=== PATIENT | female | born 1980 | race Caucasian/White ===

== ENCOUNTER 2019-02-06 05:12 | Emergency (ER) | payer MEDICAID ==
[~2019-02-06] VITALS: Ht 180.3 cm; Wt 150.0 kg
[2019-02-06] MEDS ORDERED: normal saline 1000ML IV soln IV ONE (05:35)
[2019-02-06] MEDS ORDERED: clindamycin phosphate inj 600 MG in normal saline 50ml IV soln 50 ML IV ONE (05:40)
[2019-02-06] MEDS ORDERED: LORazepam 2 mg/ml vial IV ONE (05:40)
[2019-02-06] MEDS ORDERED: clindamycin 600mg/D5W 50ml 50 ML IV ONE (05:50)
[2019-02-06] MEDS ORDERED: ketorolac tromethamine 15mg/ml inj. IV ONE (06:10)
--- NOTE | 2019-02-06 06:39 | NUR ---
ASSUME CARE OF PT. PT SLEEPING/SNORING. NO S/S DISTRESS OR PAIN AT THIS TIME.
--- NOTE | 2019-02-06 06:40 | NUR ---
USING [facility] [employer] MONITOR TO GET BP READING. MONITOR IN ROOM NOT REGISTERING.
[2019-02-06 06:42] LABS: BASOPHILS # (AUTO) 0.1 X10'3 (0-0.2); BASOPHILS % (AUTO) 0.7 % (0-1); EOSINOPHILS # (AUTO) 0.2 X10'3 (0-0.9); EOSINOPHILS % (AUTO) 1.8 % (0-6); HEMATOCRIT 39.7 % (35.0-45.0); HEMOGLOBIN 13.9 g/dl (12.0-16.0); LYMPHOCYTES # (AUTO) 1.8 X10'3 (1.1-4.8); LYMPHOCYTES % (AUTO) 17.7 % (21-51); MEAN CORPUSCULAR HGB CONC 35.1 g/dL (33.0-36.5); MEAN CORPUSCULAR VOLUME 91.4 FL (78-98); MEAN PLATELET VOLUME 7.9 FL (7.4-10.4); MONOCYTES # (AUTO) 0.8 X10'3 (0-0.9); MONOCYTES % (AUTO) 7.8 % (2-12); NEUTROPHILS # (AUTO) 7.2 X10'3 (1.8-7.7); PLATELET COUNT 279 X10'3 (140-440); RED BLOOD COUNT 4.34 X10'6 (4.20-5.60); RED CELL DISTRIBUTION WIDTH 14.7 % (11.5-14.5)
[2019-02-06 06:56] LABS: PARTIAL THROMBOPLASTIN TIME 28 SECONDS (22-32)
--- NOTE | 2019-02-06 06:59 | NUR ---
FRIEND AT BEDSIDE WHO BROUGHT HER IN TO THE ER.
[2019-02-06 07:02] LABS: ALANINE AMINOTRANSFERASE 16 U/L (12-78); ALBUMIN 2.7 G/DL (3.4-5.0); ALBUMIN/GLOBULIN RATIO 0.5 (1.1-1.5); ALKALINE PHOSPHATASE 55 IU/L (46-116); ANION GAP 9 (8-16); ASPARTATE AMINO TRANSFERASE 11 U/L (10-37); BILIRUBIN,TOTAL 0.5 MG/DL (0.1-1.0); BLOOD UREA NITROGEN 6 MG/DL (7-18); BUN/CREATININE RATIO 6.1 (6.6-38.0); CALCIUM 8.5 MG/DL (8.5-10.1); CHLORIDE 100 MMOL/L (99-107); CREATININE 0.99 MG/DL (0.40-0.90); GLUCOSE 155 MG/DL (70-104); MAGNESIUM 1.7 MG/DL (1.5-2.4); POTASSIUM 3.3 MMOL/L (3.5-5.1); SODIUM 132 MMOL/L (135-145); TOTAL CARBON DIOXIDE 22.7 MMOL/L (24-32); TOTAL PROTEIN 8.7 G/DL (6.4-8.2); eGFR 62 ML/MIN
--- NOTE | 2019-02-06 07:03 | NUR ---
LORELEI IS PT'S RIDE,
--- NOTE | 2019-02-06 08:20 | NUR ---
PT CONTINUES TO SLEEP, NO S/S DISTRESS OR PAIN.
[2019-02-06] MEDS ORDERED: CEPH-572 PO (08:42)
[2019-02-06] MEDS ORDERED: SULF1TAB49 PO (08:42)
--- NOTE | 2019-02-06 08:55 | NUR ---
PT BEING DISCHARGED. WAKE PT. INSTRUCT PT TO CALL FOR RIDE HOME. PT CALLING NOW WITH HER CELL PHONE.
--- NOTE | 2019-02-06 09:10 | NUR ---
DR DORADO INFORMED THAT LACTIC ACID WAS NOT DRAWN AT 0600. INFORMED THAT PATIENTS RIGHT LEG IS RED, HOT, SWOLLEN FROM HER FOOT TO HER INNER UPPER THIGH: MD ALREADY AWARE. DOPPLER PULSE TO RIGHT FOOT:DP AND TB.
--- NOTE | 2019-02-06 09:17 | NUR ---
PER LAB, NO LACTIC ACID DRAWN
--- NOTE | 2019-02-06 09:20 | NUR ---
CALLED KATHERINE ZUNIGA [phone]. HE HAS POSSESION OF PATIENT'S CAR
[2019-02-06 09:41] VITALS: BP 150/88
== END 2019-02-06 09:38 | disposition home or self-care (01) ==
LOC: ER 05:13
DX: L03.115 Cellulitis of right lower limb (principal); Z88.6 Allergy status to analgesic agent; Z88.5 Allergy status to narcotic agent; Z88.8 Allergy status to other drugs, medicaments and biological substances; Z79.2 Long term (current) use of antibiotics
CPT/HCPCS: 36415; 71045; 80053; 83735; 84145; 85025; 85610; 85730; 87040; 93005; 96365; 96366; 96375; 99284; J1885; J2060; J7030; J3490

== ENCOUNTER 2019-02-11 10:40 | Emergency (ER) | payer MEDICAID ==
[~2019-02-11] VITALS: Ht 180.3 cm; Wt 159.1 kg
[~2019-02-11 10:40] MED LIST: CEPH-572 PO; SULF1TAB49 PO
[2019-02-11] MEDS ORDERED: ondansetron/PF 4mg/2ml inj IV ONE (12:15)
[2019-02-11] MEDS ORDERED: CefTRIAXone 2gm/D5W 50ml 50 ML IV ONE (12:15)
[2019-02-11 12:58] LABS: BASOPHILS # (AUTO) 0.1 X10'3 (0-0.2); BASOPHILS % (AUTO) 0.7 % (0-1); EOSINOPHILS # (AUTO) 0.5 X10'3 (0-0.9); EOSINOPHILS % (AUTO) 6.6 % (0-6); HEMATOCRIT 40.4 % (35.0-45.0); HEMOGLOBIN 13.8 g/dl (12.0-16.0); LYMPHOCYTES # (AUTO) 1.9 X10'3 (1.1-4.8); LYMPHOCYTES % (AUTO) 24.4 % (21-51); MEAN CORPUSCULAR HEMOGLOBIN 31.5 PG (27.0-31.0); MEAN CORPUSCULAR HGB CONC 34.3 g/dL (33.0-36.5); MEAN PLATELET VOLUME 8.2 FL (7.4-10.4); MONOCYTES # (AUTO) 0.5 X10'3 (0-0.9); MONOCYTES % (AUTO) 6.8 % (2-12); NEUTROPHILS # (AUTO) 4.8 X10'3 (1.8-7.7); NEUTROPHILS % (AUTO) 61.5 % (42-75); PLATELET COUNT 286 X10'3 (140-440); RED BLOOD COUNT 4.39 X10'6 (4.20-5.60); RED CELL DISTRIBUTION WIDTH 14.7 % (11.5-14.5); WHITE BLOOD COUNT 7.8 X10'3 (4.5-11.0)
[2019-02-11] MEDS: morphine 4 MG/ML inj SYRINge IV PRN ×2 (13:00→14:46)
--- NOTE | 2019-02-11 13:56 | NUR ---
ULTRASOUND OF RIGHT LEG COMPLETE LABS BEING REDRAWN AND WILL WALK PATIENT TO THE BATHROOM FOR UA
--- NOTE | 2019-02-11 14:05 | NUR ---
PATIENT PROVIDED [facility] ON [facility] PROVIDED PATIENT'S MENTAL HEALTH PROVIDER LEFT TOWN THIS PAST SUMMER. PATIENT STATES THAT SHE DID SEE A PROVIDER AT [facility], BUT DID NOT LIKE HIM. SO. PATIENT HAS BEEN OFF HER BIPOLAR, ANXIETY, DEPRESSION, PTSD MEDICATIONS
--- NOTE | 2019-02-11 14:15 | NUR ---
ASSISTED PATIENT IN BATHROOM WITH BATH WIPES IN PREPARATION FOR HER URINE COLLECTION. EDUCATED PATIENT ON PERICARE IN BATHROOM: PATIENT WAS WIPING BACK TO FRONT AND THE CLOTHES WERE BROWN. PATIENT STATED THAT SHE COULD NOT WIPE FRONT TO BACK. I WIPED PATIENT FRONT TO BACK USING THE WHOLE PACK OF WIPES TO OBTAIN CLEAN CLOTHES.
--- NOTE | 2019-02-11 14:20 | NUR ---
patient ambulated with slight left leg limp, otherwise wnl ambulated to bathroom to give urine. Patient voided 400 ml despite saying that she could not void.
[2019-02-11] MEDS ORDERED: HYDROcodone/acetaminophen 10/325mg tab PO ONE (14:25)
[2019-02-11 14:28] LABS: URINE HCG NEGATIVE (NEG)
--- NOTE | 2019-02-11 14:43 | NUR ---
PATIENT RAISING HER VOICE AND GETTING ANGRY WHEN i ASKED HER IF SHE WAS TAKING ANY MEDCIATIONS AT HOME
--- NOTE | 2019-02-11 14:48 | NUR ---
PATIENT STATES THAT SHE IS NOT ALLERGIC TO [facility]
[2019-02-11 14:50] LABS: ALANINE AMINOTRANSFERASE 20 U/L (12-78); ALBUMIN 2.7 G/DL (3.4-5.0); ALBUMIN/GLOBULIN RATIO 0.5 (1.1-1.5); ALKALINE PHOSPHATASE 63 IU/L (46-116); ANION GAP 6 (8-16); ASPARTATE AMINO TRANSFERASE 12 U/L (10-37); BILIRUBIN,TOTAL 0.2 MG/DL (0.1-1.0); BLOOD UREA NITROGEN 4 MG/DL (7-18); BUN/CREATININE RATIO 3.7 (6.6-38.0); CALCIUM 8.3 MG/DL (8.5-10.1); CHLORIDE 104 MMOL/L (99-107); CREATININE 1.08 MG/DL (0.40-0.90); GLUCOSE 96 MG/DL (70-104); SODIUM 136 MMOL/L (135-145); TOTAL CARBON DIOXIDE 25.6 MMOL/L (24-32); TOTAL PROTEIN 8.6 G/DL (6.4-8.2); eGFR 56 ML/MIN
--- NOTE | 2019-02-11 14:54 | NUR ---
PATIENT AGAIN CRYING AND APPEARING HYSTERICAL WHEN ASKED WHO HER PRIMARY CARE DR IS AND PATIENT STATED THAT AGAIN SHE DID NOT LIKE HER NEW PROVIDER, SO HAD NOT SEEN A DR IN MONTHS. DISCUSSED POTENTIAL VENOUS STASIS AND POTENTIAL CELLUTIS WITH PATIENT IN SIMPLE TERMS, PATIENT VERBALIZED SIMPLE UNDERSTANDING AND THEN STARTED CRYING. DISCUSSED PATIENT PRIVACY IN REGARDS TO MEDICAL RECORDS WITH PATIENT AND PATIENTS [facility] WORKER. PATIENT CHOOSES TO COME TO [facility] FOR HER CARE BECAUSE "THEY JUST TELL ME TO GO [facility] AND EVERYTHING IS FINE IN [place] AT [facility].
[2019-02-11] MEDS ORDERED: cephalexin 250mg capsule PO ONE (15:10)
[2019-02-11] MEDS ORDERED: CEPH500C5 PO (15:12)
[2019-02-11] MEDS ORDERED: HYDR-4353 PO (15:17)
[2019-02-11 15:37] VITALS: BP 153/110
== END 2019-02-11 15:34 | disposition home or self-care (01) ==
LOC: ER 10:41
DX: I87.8 Other specified disorders of veins (principal); L03.115 Cellulitis of right lower limb; L40.9 Psoriasis, unspecified; I10 Essential (primary) hypertension; M19.90 Unspecified osteoarthritis, unspecified site; F17.200 Nicotine dependence, unspecified, uncomplicated; F12.90 Cannabis use, unspecified, uncomplicated; Z90.49 Acquired absence of other specified parts of digestive tract; Z98.890 Other specified postprocedural states; Z88.5 Allergy status to narcotic agent; Z88.8 Allergy status to other drugs, medicaments and biological substances; Z79.2 Long term (current) use of antibiotics
CPT/HCPCS: 36415; 80053; 81025; 84145; 85025; 93971; 96365; 96375; 96376; 99284; J0696; J2270; J2405

== ENCOUNTER 2019-10-28 11:18 | Emergency (ER) | payer MEDICAID ==
[~2019-10-28] VITALS: Ht 180.3 cm; Wt 159.1 kg
[~2019-10-28 11:18] MED LIST changes: -CEPH-572 PO; +CEPH500C5 PO; -SULF1TAB49 PO
--- NOTE | 2019-10-28 12:36 | NUR ---
[facility]
[2019-10-28] MEDS ORDERED: LORazepam 1 MG tablet PO ONE (12:45)
[2019-10-28] MEDS ORDERED: amLODIPine 5mg tablet PO ONE (12:45)
--- NOTE | 2019-10-28 13:30 | NUR ---
[facility] WORKING ON GETTING PT INTO OUTPATIENT APTS TO BEGIN BACK ON HER REGULAR MEDS
--- NOTE | 2019-10-28 13:31 | NUR ---
CALLED [facility] FOR PT MED LIST. THEY STATE SHE HAS NOT HAD ANYTHING FILLED THERE IN A YEAR (09/20/19) WHICH IS CONSISTANT WITH WHAT PT SAYS.
[2019-10-28] MEDS ORDERED: sulfamethoxazole/trimethoprim DS (800/160mg) tablet PO ONE (13:55)
[2019-10-28] MEDS ORDERED: losartan 50mg tablet PO ONE (13:55)
[2019-10-28] MEDS ORDERED: ketorolac trometh inj. 60 MG/2 ML VIAL IM ONE (14:00)
[2019-10-28] MEDS ORDERED: acetaminophen 325mg tablet PO ONE (14:00)
[2019-10-28] MEDS ORDERED: gabapentin 400mg capsule PO ONE (14:00)
[2019-10-28] MEDS ORDERED: LOSA100T57 PO (14:18)
[2019-10-28] MEDS ORDERED: FAMO40TA73 PO (14:18)
[2019-10-28] MEDS ORDERED: ARIP15TA3 PO (14:18)
[2019-10-28] MEDS ORDERED: OXCA300T52 PO (14:18)
[2019-10-28] MEDS ORDERED: SULF1TAB49 PO (14:18)
[2019-10-28] MEDS ORDERED: DULO-31 PO (14:18)
[2019-10-28] MEDS ORDERED: FURO-150 PO (14:18)
[2019-10-28] MEDS ORDERED: ALBU8.5H8 INH (14:18)
[2019-10-28 15:22] VITALS: BP 217/113
--- NOTE | 2019-10-28 15:22 | NUR ---
PT MEDICATED 1440 FOR HTN, UP FOR D/C. REMAINS HYPERTENSIVE WITH HX OF SAME. AWARE, OK TO D/C PER .
[2019-10-28] MEDS ORDERED: WALKERFR (15:43)
== END 2019-10-28 15:51 | disposition home or self-care (01) ==
LOC: ER 11:19
DX: M79.605 Pain in left leg (principal); M79.604 Pain in right leg; F31.9 Bipolar disorder, unspecified; F41.9 Anxiety disorder, unspecified; I10 Essential (primary) hypertension; M19.90 Unspecified osteoarthritis, unspecified site; F12.90 Cannabis use, unspecified, uncomplicated; Z90.49 Acquired absence of other specified parts of digestive tract; Z91.14 Patient's other noncompliance with medication regimen; Z98.890 Other specified postprocedural states; Z88.8 Allergy status to other drugs, medicaments and biological substances; Z88.5 Allergy status to narcotic agent; Z79.899 Other long term (current) drug therapy
CPT/HCPCS: 96372; 99284; J1885

== ENCOUNTER 2019-12-11 19:18 | Emergency (ER) | payer MEDICAID ==
[~2019-12-11] VITALS: Ht 177.8 cm; Wt 159.1 kg
[~2019-12-11 19:18] MED LIST changes: +ALBU8.5H8 INH; +ARIP15TA3 PO; +DULO-31 PO; +FAMO40TA73 PO; +LOSA100T57 PO; +OXCA300T52 PO; +WALKERFR
[2019-12-11 20:42] VITALS: BP 183/96
[2019-12-11] MEDS ORDERED: DOXY100C43 PO (21:17)
[2019-12-11] MEDS ORDERED: NYST1000 PO (21:24)
== END 2019-12-12 03:38 | disposition home or self-care (01) ==
LOC: ER 19:19
DX: J20.9 Acute bronchitis, unspecified (principal); I10 Essential (primary) hypertension; M19.90 Unspecified osteoarthritis, unspecified site; F41.9 Anxiety disorder, unspecified; F31.9 Bipolar disorder, unspecified; F12.90 Cannabis use, unspecified, uncomplicated; Z90.49 Acquired absence of other specified parts of digestive tract; Z88.5 Allergy status to narcotic agent; Z88.8 Allergy status to other drugs, medicaments and biological substances; Z79.899 Other long term (current) drug therapy
CPT/HCPCS: 71046; 99284

== ENCOUNTER 2020-01-07 19:14 | Emergency (ER) | payer MEDICAID ==
[~2020-01-07] VITALS: Ht 180.3 cm; Wt 159.1 kg
--- NOTE | 2020-01-07 20:16 | NUR ---
notified of pt SBP of 214. No action taken
[2020-01-07] MEDS ORDERED: SULF1TAB49 PO (20:35)
[2020-01-07] MEDS ORDERED: sulfamethoxazole/trimethoprim DS (800/160mg) tablet PO ONE (20:35)
[2020-01-07] MEDS ORDERED: metoprolol tartrate 50mg tablet PO ONE (20:35)
[2020-01-07 21:08] VITALS: BP 214/110
== END 2020-01-07 21:10 | disposition home or self-care (01) ==
LOC: ER 19:16
DX: R09.82 Postnasal drip (principal); R05 Cough; L02.219 Cutaneous abscess of trunk, unspecified; I10 Essential (primary) hypertension; F41.9 Anxiety disorder, unspecified; M19.90 Unspecified osteoarthritis, unspecified site; F31.9 Bipolar disorder, unspecified; F12.90 Cannabis use, unspecified, uncomplicated; F15.90 Other stimulant use, unspecified, uncomplicated; Z86.14 Personal history of Methicillin resistant Staphylococcus aureus infection; Z90.49 Acquired absence of other specified parts of digestive tract; Z98.890 Other specified postprocedural states; Z88.8 Allergy status to other drugs, medicaments and biological substances; Z79.2 Long term (current) use of antibiotics; Z79.899 Other long term (current) drug therapy
CPT/HCPCS: 99283